=== PATIENT | male | born 1995 | race Caucasian/White ===

== ENCOUNTER 2016-10-20 12:43 | Day surgery (SDC) | payer BC ==
[2016-10-19 11:13] VITALS: BMI 29.8
[~2016-10-20 12:43] MED LIST: oxyCODONE HCL 10 MG SUSTAINED ACTING TABLET PO ONE
[2016-10-20] MEDS ORDERED: oxyCODONE HCL 10 MG SUSTAINED ACTING TABLET ONE (13:11)
[2016-10-20] MEDS ORDERED: BUPIVACAINE HCL/PF 0.5% (5MG/ML) 10 ML VIAL ONE (13:39)
--- NOTE | 2016-10-20 13:50 | HP ---
History & Physical Update - History History: No Change - Physical Physical: No Change - Assessment Assessment: No Change - Plan Plan: No Change
[2016-10-20] MEDS ORDERED: THROMBIN (BOVINE) 5,000 UNIT VIAL TP ONE ×2 (13:52→15:44)
[2016-10-20] MEDS ORDERED: methylPREDNISolone ACET (DEPO) 40 MG/1 ML VIAL ONE (13:52)
[2016-10-20] MEDS ORDERED: BUPIVACAINE HCL/PF 2.5 MG/ML - 30 ML VIAL IJ ONE ×2 (13:53→14:23)
[2016-10-20] MEDS ORDERED: LIDOCAINE 1%/EPI 1:100000 (20 ML MULTI DOSE VIAL) ONE (13:53)
[2016-10-20] MEDS ORDERED: ONDANSETRON 4 MG/2 ML VIAL IVPUSH PRN (14:03)
[2016-10-20] MEDS ORDERED: oxyCODONE HCL 5 MG TABLET PO PRN (14:03)
[2016-10-20] MEDS ORDERED: MIDAZOLAM HCL 2 MG/2 ML SINGLE DOSE VIAL ONE ×3 (14:09→15:00)
[2016-10-20] MEDS ORDERED: LACTATED RINGERS SOLUTION 1,000 ML IV SCH (14:15)
[2016-10-20] MEDS ORDERED: ceFAZolin SODIUM 1 GM VIAL ONE (14:40)
[2016-10-20] MEDS ORDERED: DEXAMETHASONE SOD PHOSPHATE 4 MG/1 ML VIAL ONE (14:40)
[2016-10-20] MEDS ORDERED: ONDANSETRON 4 MG/2 ML VIAL ONE ×2 (14:40→16:35)
[2016-10-20] MEDS ORDERED: LIDOCAINE 1%/EPI 1:100000 (50 ML MULTI DOSE VIAL) INF ONE (14:58)
[2016-10-20] MEDS ORDERED: BUPIVACAINE HCL/PF 0.25% (2.5MG/ML) 10 ML VIAL IJ ONE ×2 (15:40→15:54)
[2016-10-20] MEDS ORDERED: GELATIN SPONGE,ABSORBABLE 1 GM PACKET TP ONE (15:44)
[2016-10-20] MEDS ORDERED: methylPREDNISolone ACET (DEPO) 40 MG/1 ML VIAL IM ONE (15:44)
--- NOTE | 2016-10-20 16:24 | OP ---
Operative Note - Note: Operative Date: 10/20/16 Pre-Operative Diagnosis: L5-S1 herniated disc Operation: L5-S1 laminecotmy with microdiscetomy Surgeon: Kenroy Jones [employer]: Vivian Rojo Anesthesiologist/IT APPLICATION SUPPORT ANALYST: Annika Corona Anesthesia: Spinal Specimens Removed: L5-S1 disc Estimated Blood Loss (mls): 20 Fluid Volume Replaced (mls): 700 Operative Report Dictated: Yes
--- NOTE | 2016-10-20 16:25 | SURG ---
Surgery Riveter Pneumatic Note Riveter Pneumatic: Vivian Rojo PA-C Date of Service: 10/20/16 Diagnosis: L5-S1 herniated disc Procedure: L5-S1 laminectomy, microdisectomy I was present for the entirety of the operative procedure. For further detail, please refer to operative report. Visit type - Case Type Case Type: Scheduled Admission - Emergency Emergency Visit: No - New patient This patient is new to me today: Yes Date on this admission: 10/20/16 - Critical Care Critical Care patient: No
[2016-10-20] MEDS ORDERED: ONDANSETRON 4 MG/2 ML VIAL IVPUSH ONE (16:37)
--- NOTE | 2016-10-20 17:09 | OP ---
DATE OF OPERATION: 10/20/2016 PREOPERATIVE DIAGNOSIS: Spinal stenosis, L5-S1. POSTOPERATIVE DIAGNOSIS: Spinal stenosis, L5-S1. PROCEDURE PERFORMED: Hemilaminectomy, L5-S1. SURGEON: Kenroy Jones MD WORLD GEOGRAPHY TEACHER: VICTORINO Young ESTIMATED BLOOD LOSS: 50 mL INTRAVENOUS FLUIDS: Per Anesthesia. ANESTHESIA: Spinal. COMPLICATIONS: There were none. DISPOSITION: Patient brought to the PACU in stable condition. INDICATION FOR SURGERY: The patient is a 21-year-old gentleman who has been suffering from pain from his back down his left leg. X-rays and MRI were completed, which noted that he had spinal stenosis at L5-S1 secondary to a herniated disk. He had gone through an exhaustive course of treatment for this, which included medications, physical therapy as well as injections. Unfortunately, his pain continued to persist despite all this. At this point, risks, benefits, and alternatives were discussed, and the patient consented to surgery. DESCRIPTION OF OPERATION: Patient was brought to the operating room by the anesthesia staff. After appropriate patient identification was performed, spinal anesthesia was given. He was placed prone onto the [place] frame. The patient was able to position himself such that all bony prominences were well padded at this time. Two spinal needles were placed into his back to evie off the L5-S1 segment. An x-ray was taken to confirm this as correct. [place] were removed, and 10 mL of lidocaine with epinephrine were injected into his back. At this time, his back was prepped and draped in a sterile manner. At this point, a timeout was completed. An incision was made from the top of L5 down to the bottom of S1. Dissection was carried down to the fascia. Fascia was split open on the left-hand side. Appropriate retractors were then placed in. A spinal needle was placed onto the L5 lamina. An x-ray confirmed this to be the L5-S1 level. At this point, the microscope was brought in. Portion of the L5-S1 lamina was removed. The flavum was identified, and it was removed. The nerve root was mobilized. Disk herniation was noted. It was removed at this time. By the end of the procedure, the left S1 nerve root appeared to be well decompressed. Portions of the inferior and superior facets were also removed. All bleeding was well controlled at this time. Steroid was placed over the nerve root. Gelfoam was placed over that. The fascia was closed with a No. 1 Vicryl suture. The subcutaneous tissues were closed with 2-0 Vicryl suture. Skin was closed with 3-0 Monocryl suture. Dermabond was applied. Steri-Strips were applied. A sterile dressing was applied. Patient was placed supine on the OR bed and brought to the PACU in stable condition. Hien MOORE/[id number]
[2016-10-20 17:58] VITALS: PULSE 69; TEMP 97.6
[2016-10-20] MEDS ORDERED: oxyCODONE HCL 5 MG TABLET ONE (18:03)
[2016-10-20 18:33] VITALS: BP 122/73
--- NOTE | 2016-10-26 15:36 | PATH ---
Surgical Pathology Report Patient Name: STEPHANIE SEAY [facility]. Rec. #: [id number] /Age/Gender: 1995 (Age: 21) / M Account: [id number] Location: [facility] Taken: 10/20/2016 Received: 10/21/2016 Reported: 10/26/2016 Physicians: Kenroy Jones M.D. Specimen(s) Received LUMBAR DISC L5-S1 Clinical History Spinal stenosis Final Diagnosis LUMBAR DISC L5/S1, LAMINECTOMY: CARTILAGE WITH DEGENERATIVE CHANGES. Electronically Signed Aide Araujo M.D. Gross Description Received in formalin labeled "lumbar disc L5-S1," is a 2.2 x 1.6 x 0.3 cm aggregate of [place] fragments of fibrocartilaginous tissue. The specimen is entirely submitted in one cassette. 10/21/201610/21/2016
== END 2016-10-20 18:42 | disposition home or self-care (01) ==
LOC: FASU 12:43
PROVIDERS: ATTEND Orthopaedic Surgery Orthopaedic Surgery of the Spine
PROC: 01NB0ZZ Release Lumbar Nerve, Open Approach (ICD-10-PCS; principal; 2016-10-20 14:26)
DX: M48.07 Spinal stenosis, lumbosacral region (principal)
CPT/HCPCS: 72100-TC; 76000-TC; 88304-TC; 94760

== ENCOUNTER 2020-09-25 05:25 | Day surgery (SDC) | payer BC ==
[2020-09-24 10:14] VITALS: BMI 30.5
[2020-09-25] MEDS ORDERED: DEXMEDETOMIDINE HCL 200 MCG/2 ML IVPB ONE (06:52)
[2020-09-25] MEDS ORDERED: ACETAMINOPHEN INJECTION 100 ML IVPB ONE (06:52)
[2020-09-25] MEDS ORDERED: LIDOCAINE HCL 2% JELLY 10 ML CARTRIDGE ONE (07:06)
[2020-09-25] MEDS ORDERED: LIDOCAINE HCL/PF 2% SDV 5ML VIAL ONE (07:06)
[2020-09-25] MEDS ORDERED: PROPOFOL 20 ML ONE ×2 (07:09)
[2020-09-25] MEDS ORDERED: MIDAZOLAM HCL 2 MG/2 ML SINGLE DOSE VIAL ONE (07:10)
[2020-09-25] MEDS ORDERED: KETAMINE HCL 200 MG/20 ML VIAL ONE (07:10)
[2020-09-25] MEDS ORDERED: LIDOCAINE 1%/EPI 1:100000 (20 ML MULTI DOSE VIAL) ONE (07:34)
[2020-09-25] MEDS ORDERED: BUPIVACAINE HCL/PF 0.25% (2.5MG/ML) 10 ML VIAL ONE ×2 (08:01→08:44)
[2020-09-25] MEDS ORDERED: BUPIVACAINE HCL/PF 0.25% (2.5MG/ML) 10 ML VIAL IJ ONE ×2 (08:30)
[2020-09-25] MEDS ORDERED: TRIMETHOBENZAMIDE HCL 200MG/2ML INJ IM PRN (09:23)
[2020-09-25] MEDS ORDERED: LACTATED RINGERS SOLUTION 1,000 ML IV SCH (09:30)
[2020-09-25] MEDS ORDERED: oxyCODONE HCL 5 MG TABLET PO ONE (12:00)
[2020-09-25] MEDS ORDERED: oxyCODONE HCL 5 MG TABLET ONE (12:04)
[2020-09-25 19:38] VITALS: BP 122/61; PULSE 61; TEMP 97.1
== END 2020-09-25 12:33 | disposition home or self-care (01) ==
LOC: JASU-SURG 05:25
PROVIDERS: ATTEND Otolaryngology
PROC: 0CTPXZZ Resection of Tonsils, External Approach (ICD-10-PCS; principal; 2020-09-25 08:00)
DX: J03.01 Acute recurrent streptococcal tonsillitis (principal)
CPT/HCPCS: 88304-TC; 94760; J0131